=== PATIENT | male | born 1950 | race Caucasian/White ===

== ENCOUNTER 2020-09-25 18:46 | Observation (INO) | payer OTHER, MEDICARE ==
[~2020-09-25] VITALS: Ht 180.3 cm; Wt 80.6 kg
[2020-09-25] MEDS ORDERED: GABA100 PO (19:08)
[2020-09-25] MEDS ORDERED: METF500 PO (19:08)
[2020-09-25] MEDS ORDERED: Prinivil5 MG PO (19:08)
[2020-09-25] MEDS ORDERED: ATOR20 PO (19:08)
[2020-09-25] MEDS ORDERED: AMLO5 (19:09)
[2020-09-25] MEDS ORDERED: SERT50 (19:09)
[2020-09-25] MEDS ORDERED: ATEN25 PO (20:36)
[2020-09-25 20:58] LABS: BASOPHILS ABSOLUTE AUTO 0.07 K/mm3 (0.00-0.23); BASOPHILS PERCENT AUTO 1 % (0-2); EOSINOPHILS ABSOLUTE AUTO 0.03 K/mm3 (0.00-0.68); EOSINOPHILS PERCENT AUTO 0 % (0-6); Hemoglobin 12.1 g/dL (13.5-17.5); IMMATURE GRAN ABSOLUTE AUTO 0.06 K/mm3 (0.00-0.10); IMMATURE GRAN PERCENT AUTO 1 % (0-1); LYMPHOCYTES ABSOLUTE AUTO 0.81 K/mm3 (0.84-5.20); LYMPHOCYTES PERCENT AUTO 6 % (21-46); MONOCYTES ABSOLUTE AUTO 0.63 K/mm3 (0.16-1.47); MONOCYTES PERCENT AUTO 5 % (4-13); Mean Corpuscular HGB 30.6 pg (26.0-34.0); Mean Corpuscular HGB Conc 32.7 g/dL (31.5-36.5); Mean Corpuscular Volume 94 fL (80-100); Mean Platelet Volume 11.4 fL (9.1-12.4); NEUTROPHILS ABSOLUTE AUTO 11.39 K/mm3 (1.96-9.15); NEUTROPHILS PERCENT AUTO 88 % (41-73); Platelet Count 344 K/mm3 (150-400); RDW Coefficient Variation 13.5 % (11.7-14.2); RDW Standard Deviation 46.7 fL (35.1-46.3); Red Blood Cell Count 3.95 M/mm3 (4.30-5.90); White Blood Cell Count 12.99 K/mm3 (4.00-11.30)
[2020-09-25 21:12] LABS: Alanine Aminotransfer (ALT/SGP 20 U/L (12-78); Albumin, Blood 3.1 g/dL (3.4-5.0); Albumin/Globulin Ratio 0.8 (0.8-1.8); Alk Phos 86 U/L (50-136); Anion Gap 12 mmol/L (6-16); Aspartate Aminotrans (AST/SGOT 6 U/L (12-37); Bilirubin, Total 0.4 mg/dL (0.1-1.0); Blood Urea Nitrogen 29 mg/dL (8-24); Bun/Creatinine Ratio 15.9 (12.0-20.0); CO2, Blood 17 mmol/L (21-32); Calcium, Blood 8.4 mg/dL (8.5-10.1); Chloride, Blood 108 mmol/L (98-108); Creatinine, Blood 1.82 mg/dL (0.60-1.20); Ethanol (Alcohol), Blood, Med 15 mg/dL; Globulin, Blood 3.9 g/dL (2.2-4.0); Glomerular Filtration Rate 39 (60-); Glucose, Blood 249 mg/dL (70-99); Magnesium, Blood 1.8 mg/dL (1.6-2.4); Potassium, Blood 5.4 mmol/L (3.5-5.5); Sodium, Blood 137 mmol/L (136-145); Troponin I <0.015 ng/mL (0.000-0.040)
[2020-09-25 23:10] LABS: CHOL/HDL RATIO 2.2; Cholesterol 91 mg/dL (50-200); HDL Cholesterol 41 mg/dL (>39); LDL/HDL RATIO 0.7; Low Density Lipoprotein Chol 30 mg/dL (0-110); Triglycerides 101 mg/dL (30-160); Very Low Density Lipoprot Chol 20 mg/dL (6-32)
[2020-09-26] MEDS ORDERED: BASAGLAR K100 UNIT/1 (01:29)
[2020-09-26 06:24] LABS: BASOPHILS ABSOLUTE AUTO 0.04 K/mm3 (0.00-0.23); BASOPHILS PERCENT AUTO 0 % (0-2); EOSINOPHILS PERCENT AUTO 2 % (0-6); Hematocrit 31.8 % (37.0-53.0); Hemoglobin 10.7 g/dL (13.5-17.5); IMMATURE GRAN ABSOLUTE AUTO 0.03 K/mm3 (0.00-0.10); IMMATURE GRAN PERCENT AUTO 0 % (0-1); LYMPHOCYTES ABSOLUTE AUTO 1.45 K/mm3 (0.84-5.20); LYMPHOCYTES PERCENT AUTO 16 % (21-46); MONOCYTES ABSOLUTE AUTO 0.86 K/mm3 (0.16-1.47); MONOCYTES PERCENT AUTO 10 % (4-13); Mean Corpuscular HGB 30.8 pg (26.0-34.0); Mean Corpuscular HGB Conc 33.6 g/dL (31.5-36.5); Mean Corpuscular Volume 92 fL (80-100); Mean Platelet Volume 10.7 fL (9.1-12.4); NEUTROPHILS PERCENT AUTO 71 % (41-73); Platelet Count 253 K/mm3 (150-400); RDW Coefficient Variation 13.7 % (11.7-14.2); RDW Standard Deviation 46.1 fL (35.1-46.3); Red Blood Cell Count 3.47 M/mm3 (4.30-5.90); White Blood Cell Count 8.98 K/mm3 (4.00-11.30)
[2020-09-26 06:38] LABS: Source, Urine Clean Catch
[2020-09-26 06:45] LABS: Bun/Creatinine Ratio 22.4 (12.0-20.0); Creatinine, Blood 1.61 mg/dL (0.60-1.20); Potassium, Blood 4.9 mmol/L (3.5-5.5)
[2020-09-26 07:05] LABS: Appearance, Urine Clear (Clear); Bilirubin, Urine Neg (Neg); Blood, Urine 2+ (Neg); Color, Urine Yellow (P-Yellow); Glucose Qualitative, Urine Neg (Neg); Ketones, Urine 1+ (Neg); Leukocyte Esterase, Urine 3+ (Neg); Nitrite, Urine Neg (Neg); Protein, Urine 2+ (Neg); Urobilinogen, Urine NORM (Normal)
[2020-09-26 07:23] LABS: U Amphetamine Screen Not Detected; U Barbituate Screen Not Detected; U Benzodiazapine Screen DETECTED; U Buprenorphine Screen Not Detected; U Cannabinoids Screen Not Detected; U Cocaine Screen Not Detected; U Methadone Screen Not Detected; U Methamphetamine Screen Not Detected; U Opiates Screen Not Detected; U Oxycodone Screen Not Detected; U Phencyclidine Screen Not Detected; U Propoxyphene Screen Not Detected
[2020-09-26 07:29] LABS: Red Blood Cells, Urine 0-2 /hpf (0-2)
[2020-09-26 07:30] LABS: Bacteria Mod /hpf; Squamous Epithelial Cells Few /hpf (Few)
[2020-09-27 05:33] LABS: Hematocrit 34.5 % (37.0-53.0); Hemoglobin 11.6 g/dL (13.5-17.5); Mean Corpuscular HGB 30.5 pg (26.0-34.0); Mean Corpuscular HGB Conc 33.6 g/dL (31.5-36.5); Mean Corpuscular Volume 91 fL (80-100); Mean Platelet Volume 10.4 fL (9.1-12.4); Platelet Count 279 K/mm3 (150-400); RDW Coefficient Variation 13.3 % (11.7-14.2); RDW Standard Deviation 44.5 fL (35.1-46.3); White Blood Cell Count 8.28 K/mm3 (4.00-11.30)
[2020-09-27 06:22] LABS: Ferritin, Serum 80 ng/mL (26-388); Iron Serum 54 ug/dL (65-175); Total Iron Binding Capacity 246 ug/dL (250-450)
[2020-09-27 06:23] LABS: Alanine Aminotransfer (ALT/SGP 68 U/L (12-78); Albumin, Blood 2.7 g/dL (3.4-5.0); Albumin/Globulin Ratio 0.7 (0.8-1.8); Alk Phos 76 U/L (50-136); Anion Gap 6 mmol/L (6-16); Aspartate Aminotrans (AST/SGOT 283 U/L (12-37); Bilirubin, Total 0.2 mg/dL (0.1-1.0); Blood Urea Nitrogen 23 mg/dL (8-24); Bun/Creatinine Ratio 28.7 (12.0-20.0); CHOL/HDL RATIO 2.1; CO2, Blood 23 mmol/L (21-32); Calcium, Blood 9.1 mg/dL (8.5-10.1); Chloride, Blood 109 mmol/L (98-108); Cholesterol 96 mg/dL (50-200); Globulin, Blood 3.7 g/dL (2.2-4.0); Glomerular Filtration Rate >60 (60-); Glucose, Blood 220 mg/dL (70-99); HDL Cholesterol 46 mg/dL (>39); LDL/HDL RATIO 0.7; Low Density Lipoprotein Chol 30 mg/dL (0-110); Sodium, Blood 138 mmol/L (136-145); Total Protein, Blood 6.4 g/dL (6.4-8.2); Triglycerides 99 mg/dL (30-160); Very Low Density Lipoprot Chol 19 mg/dL (6-32)
[2020-09-27] MEDS ORDERED: Aspir 8181 MG PO (11:16)
== END 2020-09-27 11:34 | disposition home or self-care (01) ==
LOC: ER 18:46 → MEDS 18:47
PROVIDERS: Emergency Medicine; Internal Medicine; ADMIT Family Medicine
DX: R27.0 Ataxia, unspecified (principal); F10.129 Alcohol abuse with intoxication, unspecified; N17.9 Acute kidney failure, unspecified; I95.9 Hypotension, unspecified; D72.829 Elevated white blood cell count, unspecified; D64.9 Anemia, unspecified; T58.91XA Toxic effect of carbon monoxide from unspecified source, accidental (unintentional), initial encounter; F32.9 Major depressive disorder, single episode, unspecified; I44.7 Left bundle-branch block, unspecified; I10 Essential (primary) hypertension; E78.5 Hyperlipidemia, unspecified; E11.9 Type 2 diabetes mellitus without complications
CPT/HCPCS: 36415; 70450; 70551; 71045; 80048; 80053; 80061; 81001; 82607; 82728; 82746; 82947; 83036; 83540; 83550; 83735; 84443; 84484; 85025; 85027; 87086; 93005; 93010; 93306; 96365; 96372; 97112; 97165; 99285-25; A9270; G0378; G0480; J0696; J1644; J1815; J7050; J7120

== ENCOUNTER 2024-06-02 13:42 | Emergency (ER) | payer OTHER ==
[~2024-06-02] VITALS: Ht 182.9 cm; Wt 83.9 kg
[~2024-06-02 13:42] MED LIST: AMLO5; ATEN25 PO; ATOR20 PO; Aspir 8181 MG PO; BASAGLAR K100 UNIT/1; GABA100 PO; METF500 PO; Prinivil5 MG PO; SERT50
[2024-06-02 13:57] VITALS: BP 91/61
[2024-06-02] MEDS ORDERED: Diphth,Pertuss(Acell),Tet Vac 0.5 ML VIAL IM ONE (14:00)
== END 2024-06-02 16:02 | disposition home or self-care (01) ==
LOC: ER 13:42
DX: S61.412A Laceration without foreign body of left hand, initial encounter (principal); E11.40 Type 2 diabetes mellitus with diabetic neuropathy, unspecified; E78.5 Hyperlipidemia, unspecified; I10 Essential (primary) hypertension; F17.200 Nicotine dependence, unspecified, uncomplicated; Z23 Encounter for immunization; Z79.4 Long term (current) use of insulin; Z79.82 Long term (current) use of aspirin; Z79.899 Other long term (current) drug therapy; Z59.89 Other problems related to housing and economic circumstances; W45.8XXA Other foreign body or object entering through skin, initial encounter
CPT/HCPCS: 12042; 73130; 90471; 90715; 99283-25

== ENCOUNTER 2024-06-03 12:13 | Emergency (ER) | payer OTHER ==
[~2024-06-03] VITALS: Ht 182.9 cm; Wt 83.9 kg
[2024-06-03 12:23] VITALS: BP 90/69
[2024-06-03 12:41] LABS: Calcium, Ionized (POC) 1.19 mmol/L (1.10-1.46); Chloride (POC) 104 mmol/L (98-108); Glucose (ISTAT POC) 106 mg/dL (70-99); Hemoglobin (POC) 13.6 g/dL (13.5-17.5); Potassium (POC) 4.9 mmol/L (3.5-5.5); Sodium (POC) 137 mmol/L (135-148); Total CO2 (POC) 17 mmol/L (21-32)
[2024-06-03 12:57] LABS: BASOPHILS ABSOLUTE AUTO 0.14 K/mm3 (0.00-0.23); BASOPHILS PERCENT AUTO 1 % (0-2); EOSINOPHILS ABSOLUTE AUTO 0.46 K/mm3 (0.00-0.68); EOSINOPHILS PERCENT AUTO 4 % (0-6); Hematocrit 39.8 % (37.0-53.0); Hemoglobin 13.2 g/dL (13.5-17.5); IMMATURE GRAN ABSOLUTE AUTO 0.05 K/mm3 (0.00-0.10); IMMATURE GRAN PERCENT AUTO 0 % (0-1); LYMPHOCYTES ABSOLUTE AUTO 1.94 K/mm3 (0.84-5.20); LYMPHOCYTES PERCENT AUTO 17 % (21-46); MONOCYTES ABSOLUTE AUTO 1.26 K/mm3 (0.16-1.47); MONOCYTES PERCENT AUTO 11 % (4-13); Mean Corpuscular HGB 31.7 pg (26.0-34.0); Mean Corpuscular HGB Conc 33.2 g/dL (31.5-36.5); Mean Corpuscular Volume 95 fL (80-100); Mean Platelet Volume 11.1 fL (9.1-12.4); NEUTROPHILS ABSOLUTE AUTO 7.56 K/mm3 (1.96-9.15); NEUTROPHILS PERCENT AUTO 66 % (41-73); Platelet Count 314 K/mm3 (150-400); RDW Coefficient Variation 15.4 % (11.7-14.2); RDW Standard Deviation 54.4 fL (35.1-46.3); Red Blood Cell Count 4.17 M/mm3 (4.30-5.90); White Blood Cell Count 11.41 K/mm3 (4.00-11.30)
[2024-06-03 13:20] LABS: Albumin/Globulin Ratio 0.8 (0.8-1.8); Bilirubin, Total 0.6 mg/dL (0.1-1.0); Calcium, Blood 9.3 mg/dL (8.5-10.1); Creatinine, Blood 0.9 mg/dL (0.60-1.20); Globulin, Blood 3.6 g/dL (2.2-4.0); Potassium, Blood 4.9 mmol/L (3.5-5.5); Total Protein, Blood 6.6 g/dL (6.4-8.2)
== END 2024-06-03 15:11 | disposition home or self-care (01) ==
LOC: ER 12:13
PROVIDERS: Emergency Medicine
DX: E87.20 Acidosis, unspecified (principal); E11.40 Type 2 diabetes mellitus with diabetic neuropathy, unspecified; E78.5 Hyperlipidemia, unspecified; I10 Essential (primary) hypertension; Z79.4 Long term (current) use of insulin; Z79.82 Long term (current) use of aspirin
CPT/HCPCS: 80047; 80053; 85014; 85025; 93005; 93010; 99283-25